=== PATIENT | male | born 1990 | race Caucasian/White ===

== ENCOUNTER → 2017-07-06 | Outpatient (CLI) | payer BC | LOC: HYPER 06:53 | DX: S51.802A Unspecified open wound of left forearm, initial encounter (principal); S51.801A Unspecified open wound of right forearm, initial encounter; L03.114 Cellulitis of left upper limb; F17.200 Nicotine dependence, unspecified, uncomplicated; F11.10 Opioid abuse, uncomplicated; X58.XXXA Exposure to other specified factors, initial encounter; Y93.89 Activity, other specified; Y92.89 Other specified places as the place of occurrence of the external cause; Y99.8 Other external cause status ==

== ENCOUNTER → 2017-07-12 | Outpatient (CLI) | payer BC | LOC: HYPER 07:04 | DX: L03.114 Cellulitis of left upper limb (principal); L03.113 Cellulitis of right upper limb; F11.10 Opioid abuse, uncomplicated; F17.200 Nicotine dependence, unspecified, uncomplicated; F12.90 Cannabis use, unspecified, uncomplicated ==

== ENCOUNTER → 2017-07-19 | Outpatient (CLI) | payer BC | LOC: HYPER 07:09 | DX: S51.801D Unspecified open wound of right forearm, subsequent encounter (principal); S51.802D Unspecified open wound of left forearm, subsequent encounter; L03.114 Cellulitis of left upper limb; L03.113 Cellulitis of right upper limb; F11.10 Opioid abuse, uncomplicated; F17.210 Nicotine dependence, cigarettes, uncomplicated; X58.XXXD Exposure to other specified factors, subsequent encounter ==

== ENCOUNTER → 2017-07-28 | Outpatient (CLI) | payer BC | LOC: HYPER 07-26 07:06 | DX: L03.114 Cellulitis of left upper limb (principal); S51.802D Unspecified open wound of left forearm, subsequent encounter; S51.801D Unspecified open wound of right forearm, subsequent encounter; L84 Corns and callosities; F12.90 Cannabis use, unspecified, uncomplicated; F11.20 Opioid dependence, uncomplicated; F17.200 Nicotine dependence, unspecified, uncomplicated; X58.XXXD Exposure to other specified factors, subsequent encounter ==

== ENCOUNTER → 2017-08-09 | Outpatient (CLI) | payer BC | LOC: HYPER 06:52 | DX: S51.802A Unspecified open wound of left forearm, initial encounter (principal); S51.801A Unspecified open wound of right forearm, initial encounter; L03.114 Cellulitis of left upper limb; F11.10 Opioid abuse, uncomplicated; F17.200 Nicotine dependence, unspecified, uncomplicated; X58.XXXA Exposure to other specified factors, initial encounter; Y93.89 Activity, other specified; Y92.89 Other specified places as the place of occurrence of the external cause; Y99.8 Other external cause status ==

== ENCOUNTER → 2017-08-21 | Outpatient (CLI) | payer BC | LOC: HYPER 06:55 | DX: S51.802D Unspecified open wound of left forearm, subsequent encounter (principal); S51.801D Unspecified open wound of right forearm, subsequent encounter; L03.114 Cellulitis of left upper limb; L03.113 Cellulitis of right upper limb; F11.10 Opioid abuse, uncomplicated; F17.200 Nicotine dependence, unspecified, uncomplicated; X58.XXXD Exposure to other specified factors, subsequent encounter ==

== ENCOUNTER → 2017-08-31 | Outpatient (CLI) | payer BC | LOC: HYPER 06:53 | DX: S51.802D Unspecified open wound of left forearm, subsequent encounter (principal); S51.801D Unspecified open wound of right forearm, subsequent encounter; L03.114 Cellulitis of left upper limb; F11.10 Opioid abuse, uncomplicated; F41.9 Anxiety disorder, unspecified; F17.200 Nicotine dependence, unspecified, uncomplicated; F12.90 Cannabis use, unspecified, uncomplicated; X58.XXXD Exposure to other specified factors, subsequent encounter ==